=== PATIENT | female | born 1995 | race African-American/Black ===

== ENCOUNTER 2025-04-28 20:55 | Observation (INO) | payer SELFPAY ==
[2025-04-28 22:10] LABS: Actual Bicarbonate (HCO3v) 18.4 mEq/L (22-28); Analyzer IN Cardio CS ER; Base Excess -6.7 mEq/L (-2 - +2); Calcium, Ionized (venous) 1.12 mmol/L (1.16-1.32); Chloride (VBG) 100 mmol/L (98-106); Critical Notified By: CP.PH; Hematocrit-VBG 38 % (36.0-47.0); Hemoglobin (Hb) 12.9 g/dL (11.7-15.5); Potassium (VBG) 3.77 mmol/L (3.70-5.30); Puncture Site Other Site; RapidComm Collect By NUR.RG3; Sodium 132 mmol/L (133-146)
[2025-04-28] MEDS ORDERED: NS 0.9% w/ 20 MEQ KCL 1,000 ML ONE (22:13)
[2025-04-28 22:23] LABS: #Basophils Less than 0.03 10x3/uL (0.0-0.2); #Eosinophils 0.11 10x3/uL (0.0-0.5); #Monocytes 0.74 10x3/uL (0.0-1.1); #Neutrophils 5.02 10x3/uL (1.5-8.4); %Basophils 0.2 % (0.0-2.0); %Eosinophils 1.2 % (0.0-6.0); %Lymphocytes 34.1 % (18.0-47.0); %Monocytes 8.2 % (0.0-10.0); %Neutrophils 55.9 % (40.0-75.0); Hematocrit 33.9 % (34.9-44.5); Hemoglobin 11.4 g/dL (12.0-15.5); Mean Corpuscular Hemoglobin 27.2 pg (27.0-33.0); Mean Corpuscular Volume 80.9 fL (81.6-98.3); Platelet Count 304 10x3/uL (150-450); Red Blood Cell (RBC) Count 4.19 10x6/uL (3.90-5.03); White Blood Cell (WBC) Count 9.00 10x3/uL (3.5-10.5)
[2025-04-28 22:42] LABS: ALT (SGPT) 10 U/L (Less than 34); AST (SGOT) 12 U/L (11-34); Albumin 3.4 g/dL (3.1-4.5); Alkaline Phosphatase 66 U/L (40-110); Anion Gap 16 mmol/L (10-20); BUN (Urea Nitrogen) 8 mg/dL (7.0-18.7); Bilirubin, Total 0.2 mg/dL (0.3-1.2); Calc. Creatinine Clearance 0 mL/min (70-130); Calcium 8.5 mg/dL (7.8-10.44); Carbon Dioxide 17 mmol/L (22-29); Chloride 102 mmol/L (98-107); Globulin 3.4 g/dL (2.4-3.5); Glucose 360 mg/dL (70-105); Lipase 17 U/L (8-78); Magnesium 1.6 mg/dL (1.6-2.6); Potassium 4.0 mmol/L (3.5-5.1); Sodium 131 mmol/L (136-145)
[2025-04-28 22:48] LABS: BHCG - Serum POSITIVE (NEGATIVE); Pregs Control Background? CLEAR/WHITE (CLR/WHITE); Pregs Control Bar Appear? YES (CONTROL BAR)
[2025-04-29] MEDS ORDERED: Acetaminophen 325 MG TAB PO PRN (00:08)
[2025-04-29] MEDS ORDERED: Dextrose 50% Abboject 50 ML SYRINGE SLOW IVP PRN (00:16)
[2025-04-29] MEDS ORDERED: Glucagon 1 MG/ML KIT IM PRN (00:16)
[2025-04-29] MEDS: PHOS-NAK 1 PKT PACK PO SCH (01:26)
[2025-04-29] MEDS: Lantus 1000 UNITS/10 ML VIAL SC SCH (01:31)
[2025-04-29 01:41] VITALS: BMI 49.1
[2025-04-29 04:30] LABS: #Basophils Less than 0.03 10x3/uL (0.0-0.2); #Eosinophils 0.14 10x3/uL (0.0-0.5); #Monocytes 0.55 10x3/uL (0.0-1.1); #Neutrophils 4.06 10x3/uL (1.5-8.4); %Basophils 0.1 % (0.0-2.0); %Eosinophils 1.7 % (0.0-6.0); %Lymphocytes 41.7 % (18.0-47.0); %Monocytes 6.7 % (0.0-10.0); %Neutrophils 49.3 % (40.0-75.0); Hematocrit 31.9 % (34.9-44.5); Hemoglobin 10.8 g/dL (12.0-15.5); Mean Corpuscular Hemoglobin 27.5 pg (27.0-33.0); Mean Corpuscular Volume 81.2 fL (81.6-98.3); Platelet Count 284 10x3/uL (150-450); Red Blood Cell (RBC) Count 3.93 10x6/uL (3.90-5.03); White Blood Cell (WBC) Count 8.23 10x3/uL (3.5-10.5)
[2025-04-29 04:41] LABS: ALT (SGPT) 8 U/L (Less than 34); AST (SGOT) 11 U/L (11-34); Albumin 3.1 g/dL (3.1-4.5); Alkaline Phosphatase 55 U/L (40-110); Anion Gap 14 mmol/L (10-20); BUN (Urea Nitrogen) 5 mg/dL (7.0-18.7); Bilirubin, Total 0.2 mg/dL (0.3-1.2); Calc. Creatinine Clearance 267 mL/min (70-130); Calcium 8.3 mg/dL (7.8-10.44); Carbon Dioxide 18 mmol/L (22-29); Chloride 105 mmol/L (98-107); Globulin 3.3 g/dL (2.4-3.5); Glucose 353 mg/dL (70-105); Potassium 4.3 mmol/L (3.5-5.1); Sodium 133 mmol/L (136-145)
[2025-04-29 08:52] VITALS: BP 116/71; TEMP 97.9
[2025-04-29 12:35] LABS: Osmolality, Serum 284 mOsm/kg (275-295)
[2025-04-29] MEDS ORDERED: Lantus 1000 UNITS/10 ML VIAL SC SCH (21:00)
== END 2025-04-29 10:55 | disposition left against medical advice (07) ==
LOC: CSHERS 20:55 → CSHICU 04-29 00:08
PROVIDERS: ADMIT Internal Medicine; ATTEND Internal Medicine
DX: E11.65 Type 2 diabetes mellitus with hyperglycemia (principal); I10 Essential (primary) hypertension; Z79.4 Long term (current) use of insulin; Z79.85 Long-term (current) use of injectable non-insulin antidiabetic drugs; F17.210 Nicotine dependence, cigarettes, uncomplicated
CPT/HCPCS: 36416; 80053; 82010; 82805; 83036; 83605; 83690; 83735; 83930; 84100; 84702; 84703; 85025; 86850; 86900; 86901; 93005; 94760; G0378; J1815; J3480; J7030